=== PATIENT | female | born 1980 | race Caucasian/White ===

== ENCOUNTER 2021-10-13 10:26 | Day surgery (SDC) | payer MEDICARE, MEDICAID, SELFPAY ==
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
[2021-10-13] VITALS (7 sets, daily range): BP systolic 100–137; BP diastolic 66–95; PULSE 69–101; RESP 16; TEMP 36.2–36.8; O2SAT 94–100; BMI 23.8
--- NOTE | 2021-10-13 | EMB_PTH ---
PATIENT: MARLON GARCES LOC: [facility] – [place] U#:[id number] AGE/SX: 41/F ROOM: RE10/13/[address]: Dr. Kathy Vital MD : 1980 BED: DIS: 10/13/2021 SPEC #: [id number] RECD: 10/14/21 07:19 STATUS: VICKI МАРИНА #: [id number] DARIA: 10/13/21 00:[address]: Kathy Vital DEPT: SURGICAL PATHOLOGY RECD BY: Neri Graham ENTERED: 10/14/21 08:13 SP TYPE: ENDOM BX/C JAZ DR: SOM Martinez Tissues: Endometrium, NOS Procedures: Surgery Specimen Level IV HEADER OPERATION: Hysteroscopy, D & C Meenu, endometrial ablation PRE-OP DIAGNOSIS: Thickened endometrium, abnormal uterine bleeding, dysmenorrhea TISSUE SUBMITTED: Endometrial curettings MICROSCOPIC DIAGNOSIS Endometrial curettings: Secretory endometrium with extensive glandular breakdown. SJ:jose g 10/17/2021 MICROSCOPIC DESCRIPTION Slides are reviewed. GROSS DESCRIPTION Received in fixative is one container labeled with the patient's name and designated endometrial curettings. The specimen consists of multiple fragments of pink hemorrhagic soft tissue that in aggregate measure 3 x 2.5 x 0.2 cm. The specimen is totally submitted in one cassette. / GERSON:jose g 10/14/2021 TC:5 CPT: 64839
[2021-10-13] MEDS: Lactated Ringers 1,000 ML 15 ML IV (11:00)
[2021-10-13] MEDS: Acetaminophen 500 MG Tablet 1000 MG PO (11:33)
[2021-10-13] MEDS: Ketorolac 30 MG/ML Syringe IV (11:43)
[2021-10-13 11:54] LABS: Absolute Lymphocyte Count 1.89 X10^3/uL (0.83-4.51); Basophil# 0.04 X10^3/uL; Basophil% 0.5 % (0-1); Eosinophil# 0.11 X10^3/uL; Eosinophils% 1.2 % (0-5); Hematocrit 36.5 % (37-47); Hemoglobin 11.8 g/dL (12.0-15.0); Lymphocyte # 1.89 X10^3/ul (0.83-4.51); Lymphocyte % 21.4 % (19-41); Mean Corp Hgb Conc 32.3 g/dL (32-36); Mean Corpuscular Hgb 27.5 pg (27.0-32.0); Mean Corpuscular Volume 85.1 fL (81-99); Mean Platelet Vol. 9.5 fl (6.2-12.0); Monocyte# 0.78 X10^3/uL; Monocyte% 8.8 % (0-10); NRBC Flagged by Analyzer 0 % (0-5); Neutrophil # 5.97 X10^3/uL (2.7-7.7); Neutrophil % 67.8 % (47-70); Platelet Count 391 K/mm3 (150-450); RBC Distribution Width CV 12.9 % (11.6-14.6); RBC Distribution Width SD 39.5 fl (35.1-43.9); Red Blood Count 4.29 M/mm3 (4.2-5.4); White Blood Count 8.8 K/mm3 (4.4-11.0)
--- NOTE | 2021-10-13 12:27 | DCINST_ITS ---
Discharge Instructions Diet Discharge Diet: No restrictions Activity May resume sexual activity in: 2 weeks Lifting Restrictions: none Dressing / Incision Call your doctor if your incision/area has: Sudden Increased Bleeding and Foul Smelling Discharge Call your doctor if you observe: Fever of 101 or Higher and Using more than 1 pad per hour (for 2 hrs in a row) Follow Up Care Please Follow Up With: Kathy Vital MD When: 2-4 weeks or as needed. Call [phone] to make an appointment or with any concerns. Test Results: Test results from this visit will be discussed in further detail at your follow-up appointment, if applicable. Discharge Plan Admission Primary Reason for Your Visit: D&C with IUD insertion for heavy menstrual bleeding Attending Provider: Kathy Vital Primary Care Provider: Laura Rodriguez Discharge Orders/Prescriptions Prescriptions: No Action fluticasone propionate [Flovent HFA] 1 INHALER inhaler 2 puff inhalation BID RF: 0 ibuprofen 400 MG tablet 400 mg PO Q6H PRN PRN (Reason: Pain) RF: 0 bupropion HCl 75 MG tablet 75 mg PO DAILY RF: 0 sertraline [Zoloft] 25 MG tablet 25 mg PO DAILY RF: 0 omeprazole 20 MG capsule 20 mg PO DAILY RF: 0 montelukast 10 MG tablet 10 mg PO DAILY RF: 0 albuterol sulfate [ProAir HFA] 1 PUFF inhaler 1 - 2 puff inhalation Q4H PRN PRN (Reason: Shortness Of Breath) RF: 0 fluticasone propionate 1 SPRAY spray,suspension 2 spray NASAL DAILY RF: 0 oxybutynin chloride 10 mg tablet extended release 24hr 10 mg PO DAILY RF: 0 levocetirizine 5 mg tablet 5 mg PO DAILY RF: 0 Other Ambulatory Orders: CBC-Complete Blood Cnt No Diff (Routine) Timeframe: 20211013 Facility: [facility] - Location: Laboratory Ordered By: Dr. Kathy Vital ,Urine (Routine) Timeframe: 20211013 Facility: [facility] - Location: Laboratory Ordered By: Dr. Kathy Vital Referrals / Follow Up: Laura Rodriguez PA [Primary Care Provider] - Disposition Disposition (needs filled in before D/C Order can be placed): Home, Self Care
[2021-10-13] MEDS: Lidocaine 1% /Epi 1:100 (20ml) 20 ML Vial (12:31)
[2021-10-13] MEDS: Levonorgestrel IUD (Liletta) 1 EACH INTRA-UTER (12:43)
--- NOTE | 2021-10-13 12:49 | PCM.OPRPT ---
Problems Associated Problem List Diagnoses (1) Dysmenorrhea: (2) Abnormal uterine bleeding (AUB): (3) Thickened endometrium: Report of Operation Date of Procedure: 10/13/21 Pre-Operative Diagnosis: Menorrhagia, dysmenorrhea Post-Operative Diagnosis: same Surgery/Procedure Performed:: Hysteroscopy D&C with Meenu endometrial ablation and Liletta IUD insertion Description of Surgical Findings:: lush ragged endometrium, normal cervix and vagina Surgeon: Kathy Vital name plate stamper: None Type of Anesthesia: MAC/Supplemental/Local Anesthesiologist: Basilio Perez Special Medications: none Specimen's removed: endometrial curettings Drains: none Estimated Blood Loss (mL): 10 Fluids Replaced: 1200 Description of Procedure: The patient was taken to the OR where she was prepped and draped in dorsal lithotomy position. The weighted speculum was placed in the vagina and the anterior lip of the cervix was grasped with a single-tooth tenaculum. A paracervical block was administered with [1% lidocaine with 1-100,000 epinephrine solution]. The cervix was dilated serially with Hegar dilators. The [5mm] hysteroscope was placed into the uterine cavity and the above findings were noted. Bilateral tubal ostia [were] identified. The uterus sounded to 7.5 cm and the cervical length was 3.5 cm. The endometrial cavity length was 4 cm. The hysteroscope was removed. [A gentle sharp curettage was done of the uterine cavity. The specimen was handed off and sent to pathology.] The Meenu device was set to 4 cm. The instrument was then seated into the endometrial cavity and the indicator was in the green. The cervical seal balloon was inflated and the uterine integrity test was passed. The ablation procedure was initiated and completed without interruption. During the ablation procedure gentle traction was held on the tenaculum and the Meenu device was held up against the uterine fundus. When the ablation procedure was completed the Meenu was removed. The tenaculum was removed and the tenaculum site was noted to be hemostatic. All sponge and needle counts were correct. A vaginal sweep was performed by me. The patient was awakened and taken to the recovery room in stable condition. Hysteroscopic fluid deficit 100 cc of normal saline Grafts/Implants Used: none Procedure Start Time: 12:31 Procedure Stop Time: 12:44 Complications none Admit VTE Documentation VTE Present on Admission: No VTE Mechan Device Prophylaxis: SCD's VTE Pharm Prophylaxis ordered?: No Reason prophylaxis not ordered:: Procedure Not Indicated
== END 2021-10-13 13:45 | disposition home or self-care (01) ==
LOC: SDC 10:32 → AC 10:32
PROVIDERS: PCP Physician Assistant; Referring Provider Obstetrics & Gynecology; Visit Provider Obstetrics & Gynecology
PROC: 0U5B8ZZ Destruction of Endometrium, Via Natural or Artificial Opening Endoscopic (ICD-10-PCS; CPT 58558; principal; 2021-10-13 12:05)
DX: N92.0 Excessive and frequent menstruation with regular cycle (principal); N94.6 Dysmenorrhea, unspecified; Z30.430 Encounter for insertion of intrauterine contraceptive device; J45.909 Unspecified asthma, uncomplicated; F32.A Depression, unspecified; K21.9 Gastro-esophageal reflux disease without esophagitis; Z79.899 Other long term (current) drug therapy
CPT/HCPCS: 58563; 58300; 85025; 88305; J7120; J2405